=== PATIENT | male | born 1980 | race Two or more races ===

== ENCOUNTER 2019-05-30 19:56 | Emergency (ER) | payer OTHER ==
[~2019-05-30] VITALS: Ht 165.1 cm; Wt 90.7 kg
[~2019-05-30 19:56] MED LIST: BACTRIM-DS1 EA ORAL; KEFLEX500 MG ORAL; NKM; NORCO1 EA ORAL
[2019-05-30 20:30] VITALS: BP 118/79
--- NOTE | 2019-05-30 20:30 | NUR ---
ED Nurse Note: Pt walked into ED c/o puncture wound on left palm x 1830 today. Reports injuring self by accident at work with spatula blade. No active bleeding noted.
[2019-05-30] MEDS ORDERED: AUGMENTIN 875-1 EAC1 ORAL (21:50)
[2019-05-30] MEDS ORDERED: Tetanus/Diptheria/Pertussis IM ONE (21:56)
[2019-05-30 22:01] VITALS: BP 118/79
--- NOTE | 2019-05-30 22:01 | NUR ---
ED Nurse Note: Pt cleared by ERMD for discharge. DC instructions/prescription was given and explained to pt and verbalized understanding of teachings. All medical deviecs such as ID band removed. Pt is AAO x4, ambulatory and left with all personal belongings.
--- NOTE | 2019-05-31 02:26 | Emergency Room Report ---
History of Present Illness General Chief Complaint: Puncture Wound Source: Patient Present Illness HPI 38-year-old male presents ED for evaluation. States that he punctured his left hand tonight at work using a spatula blade. States he was scraping the gum off of a table when he hit his left hand. States it was initially bleeding but resolved. Tetanus unknown. Denies pain. Denies any other injuries. No other aggravating relieving factors. Denies any other associated symptoms Allergies: Coded Allergies: No Known Allergies (Unverified , 09/08/12) Patient History Past Medical History: none Past Surgical History: none Pertinent Family History: none Social History: Denies: smoking, alcohol use, drug use Immunizations: UTD Reviewed Nursing Documentation: PMH: Agreed; PSxH: Agreed Nursing Documentation-PMH Past Medical History: No Stated History Review of Systems All Other Systems: negative except mentioned in HPI Physical Exam Vital Signs Date Time Temp Pulse Resp B/P (MAP) Pulse Ox O2 Delivery O2 Flow Rate FiO2 05/30/19 20:25 98.8 85 22 118/79 (92) 92 Room Air Sp02 EP Interpretation: reviewed, normal General Appearance: no apparent distress, alert, GCS 15, non-toxic Head: normocephalic Eyes: bilateral eye normal inspection, bilateral eye PERRL ENT: normal ENT inspection Neck: normal inspection Respiratory: normal inspection Cardiovascular #1: normal inspection Gastrointestinal: normal inspection Rectal: deferred Genitourinary: no CVA tenderness Musculoskeletal: back normal, normal range of motion, gait/station normal, non- tender Neurologic: alert, motor strength/tone normal, oriented x3, sensory intact, responsive, speech normal Psychiatric: judgement/insight normal, memory normal, mood/affect normal, no suicidal/homicidal ideation Skin: laceration - 1cm puncture wound to L hypothenar. no bleeding. no erythema /induration Lymphatic: normal inspection Medical Decision Making Diagnostic Impression: Primary Impression: Puncture wound ER Course Hospital Course 38 yo M presents with puncture wound L hand Clinical course Patient placed on stretcher. After initial history, physical exam reveals a male in no acute distress. On exam there is a puncture wound to the left hyperthenar area. No erythema or induration. No active bleeding. I discussed findings with patient. Given tetanus in ED. Will discharge home with antibiotics. Safe for discharge for close outpatient follow-up. I will provide referrals Diagnosis - puncture wound stable and discharged to home with prescription for augmentin. Instructed to followup with PMD. Instructed return to ED if symptoms recur or worsen Last Vital Signs Date Time Temp Pulse Resp B/P (MAP) Pulse Ox O2 Delivery O2 Flow Rate FiO2 05/30/19 22:01 98.8 22 118/79 92 Room Air 05/30/19 20:30 78 Status: improved Disposition: HOME, SELF-CARE Condition: Stable Scripts Amoxicillin/Potassium Clav 875-125* (AUGMENTIN 875-125 TABLET*) 1 Each Tablet 1 TAB ORAL TWICE A DAY, #14 TAB Prov: Jon Grijalva MD 05/30/19 Referrals: NOT CHOSEN IPA/,REFERRING (PCP) [facility] Liam Mcneill Comp. [facility] Departure Forms: Return to Work Return to Work Date: May 31, 2019 Work Restrictions: None Patient Instructions: Puncture Wound Jon Grijalva MD May 31, 2019 02:26
== END 2019-05-30 22:01 | disposition home or self-care (01) ==
LOC: EMR 22:01
DX: S61.432A Puncture wound without foreign body of left hand, initial encounter (principal); W22.8XXA Striking against or struck by other objects, initial encounter; Y92.9 Unspecified place or not applicable; Z23 Encounter for immunization
CPT/HCPCS: 90471; 90715; 99282